=== PATIENT | female | born 1945 | race Caucasian/White ===

== ENCOUNTER 2016-04-09 08:43 | Outpatient (CLI) ==
[2016-04-09 12:56] LABS: BASOPHILS % (AUTO) 0.6 % (0.0-3.0); EOSINOPHILS # (AUTO) 0.3 K/ul (0.0-0.7); EOSINOPHILS % (AUTO) 8.1 % (0.0-7.0); HEMATOCRIT 33.3 % (37.0-47.0); HEMOGLOBIN 9.6 g/dl (12.0-16.0); IMMATURE GRANULOCYTE % (AUTO) 0.3 % (0.0-5.0); LYMPHOCYTES # (AUTO) 1.6 K/uL (0.60-3.4); LYMPHOCYTES % (AUTO) 46.2 (10.0-50.0); MEAN CORPUSCULAR HEMOGLOBIN 31.4 pg (27.0-31.0); MEAN CORPUSCULAR HGB CONC 28.8 (31.8-35.4); MEAN CORPUSCULAR VOLUME 108.8 fl (81.0-99.0); MONOCYTES # (AUTO) 0.3 K/uL (0.4-2.0); MONOCYTES % (AUTO) 7.5 (0-10); NEUTROPHILS # (AUTO) 1.3 K/ul (2.0-6.9); NEUTROPHILS % (AUTO) 37.3; PLATELET COUNT 277 10^3/uL (140-440); RED BLOOD COUNT 3.06 10^6/ul (4.20-5.40); WHITE BLOOD COUNT 3.46 K/ul (4.6-10.2)
[2016-04-09 13:09] LABS: ALBUMIN 3.6 g/dL (3.4-5.0); ALBUMIN/GLOBULIN RATIO 0.92; ANION GAP 12.1; BILIRUBIN,TOTAL 0.32 mg/dL (0.00-1.20); BUN/CREATININE RATIO 14.06; CALCIUM 8.8 mg/dL (8.2-10.2); CHOL/HDL RATIO 5.2 (4.5-5.5); CREATININE 0.64 mg/dL (0.60-1.30); POTASSIUM 4.1 mmol/L (3.5-5.10); TOTAL PROTEIN 7.5 g/dL (5.8-8.1)
== END 2016-04-09 08:44 | disposition home or self-care (01) ==
LOC: LAB 08:43
PROVIDERS: ATTEND General Practice
DX: E78.5 Hyperlipidemia, unspecified (principal); J43.9 Emphysema, unspecified; D64.9 Anemia, unspecified; E55.9 Vitamin D deficiency, unspecified; Z79.899 Other long term (current) drug therapy
CPT/HCPCS: 36415; 80053; 80061; 82306; 85025

== ENCOUNTER 2016-04-13 12:33 | Outpatient (CLI) ==
[2016-04-13 13:37] LABS: BILIRUBIN,URINE Negative (NEGATIVE); KETONES,URINE Negative (NEGATIVE); LEUKOCYTE ESTERASE ,URINE Negative (NEGATIVE); NITRITE,URINE Negative (NEGATIVE); PH,URINE 7.5 (5-9); PROTEIN,URINE Negative (NEGATIVE); URINE, BLOOD Trace-intact (NEGATIVE)
[2016-04-13 13:46] LABS: ADD URINE MICROSCOPIC YES
== END 2016-04-13 12:34 | disposition home or self-care (01) ==
LOC: LAB 12:33
PROVIDERS: ATTEND General Practice
DX: Z79.899 Other long term (current) drug therapy (principal)
CPT/HCPCS: 81001

== ENCOUNTER 2016-06-16 09:53 | Outpatient (CLI) ==
--- NOTE | 2016-06-16 10:45 | CT ---
EXAM: CT chest without contrast. HISTORY: Emphysema. COMPARISON: 12/11/2009. TECHNIQUE: Multiple axial images of the chest were obtained without intravenous contrast. Images w ere reformatted in the sagittal and coronal planes. FINDINGS: Evaluation for lymphadenopathy is limited due to lack of intravenous contrast. The heart size is normal. Atherosclerotic calcifications present. Ascending thoracic aorta measures up to 3 .8 cm maximum diameter. Severe emphysematous changes present bilaterally, greater in the upper lobes. A 1.2 x 1.6 x 0.7 cm nodular density is seen in the medial right lower lobe adjacent to the left atrium best seen on axia l image 35, coronal image 43 and sagittal image 36 central lucency within this area. Coronal images suggest some spiculations. No consolidation, pleural effusion or pneumothorax detected. Probable mu cus in the trachea. Limited images of the upper abdomen demonstrate no acute finding. Degenerative changes seen through out the spine. IMPRESSION: 1. Severe emphysema. 2. New spiculated right lower lobe nodule with central cavitation, suspicious for neoplasm. Correl ation with PET CT recommended.
== END 2016-06-16 09:54 | disposition home or self-care (01) ==
LOC: RAD 09:53
PROVIDERS: ATTEND General Practice
DX: J43.9 Emphysema, unspecified (principal); Z87.891 Personal history of nicotine dependence

== ENCOUNTER 2016-12-02 12:26 | Outpatient (CLI) ==
[2016-12-02 13:20] LABS: HEMATOCRIT 32.5 % (37.0-47.0); HEMOGLOBIN 10.1 g/dl (12.0-16.0); MEAN CORPUSCULAR HEMOGLOBIN 33.2 pg (27.0-31.0); MEAN CORPUSCULAR HGB CONC 31.1 (31.8-35.4); MEAN CORPUSCULAR VOLUME 106.9 fl (81.0-99.0); PLATELET COUNT 293 10^3/uL (140-440); RED BLOOD COUNT 3.04 10^6/ul (4.20-5.40); WHITE BLOOD COUNT 4.99 K/ul (4.6-10.2)
[2016-12-02 13:21] LABS: BILIRUBIN,URINE Negative (NEGATIVE); KETONES,URINE Negative (NEGATIVE); LEUKOCYTE ESTERASE ,URINE Negative (NEGATIVE); NITRITE,URINE Negative (NEGATIVE); PH,URINE 6.5 (5-9); PROTEIN,URINE Negative (NEGATIVE); URINE, BLOOD Negative (NEGATIVE)
[2016-12-02 13:22] LABS: ADD URINE MICROSCOPIC NO
[2016-12-02 13:34] LABS: ANISOCYTOSIS 1+ (NOT PRESENT)
[2016-12-02 13:49] LABS: ALBUMIN 3.5 g/dL (3.4-5.0); ALBUMIN/GLOBULIN RATIO 0.9; ANION GAP 13.1; BILIRUBIN,TOTAL 0.28 mg/dL (0.00-1.20); BUN/CREATININE RATIO 18.96; CALCIUM 9.1 mg/dL (8.2-10.2); CREATININE 0.58 mg/dL (0.60-1.30); POTASSIUM 4.1 mmol/L (3.5-5.10); TOTAL PROTEIN 7.4 g/dL (5.8-8.1)
== END 2016-12-02 12:27 | disposition home or self-care (01) ==
LOC: LAB 12:26
PROVIDERS: ATTEND General Practice
DX: J43.9 Emphysema, unspecified (principal); D64.9 Anemia, unspecified; E55.9 Vitamin D deficiency, unspecified; M81.0 Age-related osteoporosis without current pathological fracture; Z79.899 Other long term (current) drug therapy
CPT/HCPCS: 36415; 80053; 80061; 81001; 82306; 85008; 85025

== ENCOUNTER 2017-01-19 12:44 | Outpatient (CLI) | payer OTHER ==
[2017-01-19 13:00] LABS: EOSINOPHILS # (AUTO) 0.1 K/ul (0.0-0.7); EOSINOPHILS % (AUTO) 3.5 % (0.0-7.0); HEMATOCRIT 33.2 % (37.0-47.0); HEMOGLOBIN 10.4 g/dl (12.0-16.0); IMMATURE GRANULOCYTE % (AUTO) 0.5 % (0.0-5.0); LYMPHOCYTES # (AUTO) 1.3 K/uL (0.60-3.4); LYMPHOCYTES % (AUTO) 31.8 (10.0-50.0); MEAN CORPUSCULAR HEMOGLOBIN 33.7 pg (27.0-31.0); MEAN CORPUSCULAR HGB CONC 31.3 (31.8-35.4); MEAN CORPUSCULAR VOLUME 107.4 fl (81.0-99.0); MONOCYTES # (AUTO) 0.3 K/uL (0.4-2.0); MONOCYTES % (AUTO) 7.4 (0-10); NEUTROPHILS # (AUTO) 2.3 K/ul (2.0-6.9); NEUTROPHILS % (AUTO) 55.8; PLATELET COUNT 304 10^3/uL (140-440); RED BLOOD COUNT 3.09 10^6/ul (4.20-5.40); WHITE BLOOD COUNT 4.03 K/ul (4.6-10.2)
[2017-01-19 13:09] LABS: BILIRUBIN,URINE Negative (NEGATIVE); KETONES,URINE Negative (NEGATIVE); LEUKOCYTE ESTERASE ,URINE Negative (NEGATIVE); NITRITE,URINE Negative (NEGATIVE); PROTEIN,URINE Negative (NEGATIVE); URINE, BLOOD Trace-intact (NEGATIVE)
[2017-01-19 13:11] LABS: ADD URINE MICROSCOPIC YES
[2017-01-19 13:32] LABS: ALBUMIN 3.6 g/dL (3.4-5.0); ALBUMIN/GLOBULIN RATIO 0.84; ANION GAP 12.9; BILIRUBIN,TOTAL 0.38 mg/dL (0.00-1.20); BUN/CREATININE RATIO 16.94; CALCIUM 9.9 mg/dL (8.2-10.2); CREATININE 0.59 mg/dL (0.60-1.30); POTASSIUM 3.9 mmol/L (3.5-5.10); TOTAL PROTEIN 7.9 g/dL (5.8-8.1)
== END 2017-01-19 12:45 | disposition home or self-care (01) ==
LOC: LAB 12:44
PROVIDERS: ATTEND General Practice
DX: E55.9 Vitamin D deficiency, unspecified (principal); D53.1 Other megaloblastic anemias, not elsewhere classified; Z79.899 Other long term (current) drug therapy
CPT/HCPCS: 36415; 80053; 80061; 81001; 82306; 85025

== ENCOUNTER 2017-04-08 07:21 | Inpatient (IN) | payer OTHER ==
[2017-04-08] MEDS ORDERED: DILAUDID 1 MG/ML SYRINGE IVP STA (07:45)
[2017-04-08] MEDS ORDERED: ZOFRAN 4 MG/2 ML IVP STA (07:45)
--- NOTE | 2017-04-08 09:22 | CT ---
EXAM: CT ABDOMEN AND PELVIS HISTORY: Abdominal and low back pain TECHNIQUE: CT abdomen and pelvis without contrast. Multiplanar images provided. FINDINGS: Comparison may be made to 01/02/2014. Diagnostic limitations exist without including contrast enhanced images. Liver is slightly heterogen eous. Prominent caudate lobe and widening of the fissures. Correlate clinically and with history fo r any risks of early hepatic cirrhosis. Spleen within normal limits. Gallbladder is absent. Normal adrenal glands. Kidneys appear normal. No ureteral obstruction is seen. There is moderate atheros clerotic disease. No aneurysmal caliber of the aorta. No gastric distension. The appendix has no evidence of inflammation. Nonobstructive bowel gas patter n. No uterus is identified. Urinary bladder is within normal limits. There is no ascites. Ventral abdominal wall is intact. The bones appear significantly demineralized. Postop changes of t he lower spine are seen. No definite acute fracture. Moderately severe degenerative changes of the s pine. Lung bases reveal nodular consolidations on the right. No pneumoperitoneum. IMPRESSION: 1. Relatively severe generalized demineralization. Severe degenerative changes of the lower spine. No definite acute fracture. 2. Nodular opacities in the lateral right lung base may represent pneumonia. Pulmonary nodules are not excluded and clinical correlation and follow-up CT thorax is recommended. 3. Appearance of the liver as described in the first paragraph of the report. 4. Moderate atherosclerotic disease.
--- NOTE | 2017-04-08 09:27 | CT ---
EXAM: CT lumbar spine without contrast HISTORY: Pain COMPARISON: 06/01/2011 TECHNIQUE: CT lumbar spine performed without intravenous contrast. Coronal and sagittal reformatted images obtained. FINDINGS: Vertebral bodies normal in height. No fracture. No subluxation. Interbody spacers L4-L5 and L5-S1. Multilevel marginal osteophyte formation. Mild intervertebral disc space narrowing L2-L 3. Multilevel facet arthrosis. Bone graft harvesting site left iliac bone. Sacroiliac joints intac t with mild degenerative change. Please refer to separate report CT abdomen pelvis regarding finding s in the abdomen pelvis. Emphysematous change lung bases. Trace right pleural effusion. Adjacent at electasis. Atherosclerosis. T12-L1: No central canal or neural foraminal narrowing. L1-L2: No central canal or neural foraminal narrowing. L2-L3: No central canal or neural foraminal narrowing. L3-L4: Posterior disc osteophyte complex and facet arthrosis causing mild bilateral neural foraminal narrowing. L4-L5: Posterior disc osteophyte complex and facet arthrosis causing mild to moderate bilateral neur al foraminal narrowing. L5-S1: No definite central canal or neural foraminal narrowing. IMPRESSION: 1. No fracture or subluxation. 2. Postsurgical changes of L4-L5 and L5-S1. Chronic discogenic degenerative disease and facet arthro sis. Please see segmental analysis.
[2017-04-08] MEDS ORDERED: NORCO 10-325 PO STA (10:24)
--- NOTE | 2017-04-08 10:42 | CT ---
EXAM: CT THORAX HISTORY: Shortness of breath. TECHNIQUE: CT thorax without intravenous contrast. Multiplanar images presented. Coronal and sagit hamida re-formations. COMPARISON: 06/16/2016 FINDINGS: Diagnostic limitations exist without including contrast enhanced images. Heart size is normal. Rede monstration of dilated caliber of the ascending aorta grossly stable at about 3.5 cm. There is mild to moderate atherosclerotic disease. In the right hilar/infrahilar space, there is a soft tissue mass measuring at least 2.9 x 3.3 x 5.2 c m. This is located in the region of previously seen suspicious pulmonary nodule which was much small er. There is narrowing of the adjacent bronchovascular structures suggested. The mass is indistinct from the mediastinal soft tissues for which an invasive nature could be considered. There is moderately severe emphysema and scattered fibrosis. There are nodular infiltrates or nodules in the right lateral lower lobe. No pneumothorax or pleural fluid. No vascular congestion. The bone s reveal age-related degenerative changes of the spine with no obvious metastatic foci seen. Promine nt thyroid gland. IMPRESSION: 1. Large lung mass in the right hilar/infrahilar space consistent with neoplasia of. There is narro wing of the regional bronchovascular structures. Nodular infiltrates (pneumonia) or nodules in the ri ght lung base. 2. Background of moderately severe chronic obstructive pulmonary disease and scattered fibrosis.
--- NOTE | 2017-04-08 10:59 | ED.PDOC ---
General ED Provider: Dr. GOYO ENRIQUEZ Chief Complaint: Back Pain Stated Complaint: low back pain Time Seen by Physician: 07:30 (seen with nursing staff nalini ) Mode of Arrival: Ambulance Information Source: Patient, EMT Exam Limitations: No limitations [facility] and Triage Documentation Reviewed and Agree: Yes Reviewed sepsis parameters & appropriate labs ordered?: Yes System Inflammatory Response Syndrome: Not Applicable Sepsis Protocol: For patient's 13 years and over: Temp is 96.8 and below OR 101 and greater Pulse >90 BPM Resp >20/minute Acutely Altered Mental Status Are patient's symptoms suggestive of a new infection, such as: -Pneumonia -Skin, Soft Tissue -Endocarditis -UTI -Bone, Joint Infection -Implantable Device -Acute Abdominal Infection -Wound Infection -Meningitis -Blood Stream Catheter Infection -Unknown System Inflammatory Response Syndrome: Not Applicable Musculoskeletal Complaint Exam - Back Pain Complaint/Exam Mechanism of Injury: Reports: No known trauma Onset/Duration: chronic pain worse 2 days ago in lumbar region called 911 Symptoms Are: Still present Timing: Constant Episodes Lasting: Days Initial Severity: Severe Current Severity: Severe Location: Reports: Discrete Character: Reports: Aching Aggravating: Reports: Movements, Lifting, Bending, Walking, Cough Alleviating: Reports: Rest, Position Associated Signs and Symptoms: Denies: Swelling, Redness, Bruising, Fever, Weakness, Numbness, Tingling, Abdominal pain, Flank pain, Bladder incontinence, Bowel incontinence, Weight loss, Pain with weight bearing Related History: Reports: Similar episode (chronic low back pain with prior surgery) TAD Risk Factors: Reports: Hypertension AAA Risk Factors: Reports: Hypertension Cauda Equina Risk Factors: Reports: None Epidural Abcess Risk Factors: Reports: None Related Surgical History: Reports: None Focal Tenderness: No Paraspinal Muscle Tenderness: No Paraspinal Muscle Spasm: No Scoliosis: No Lordosis: No Kyphosis: No (unable to do SLR ) Focal Weakness: Present: None Focal Sensory Loss: Present: None Differential Diagnoses: Strain, Sprain, Other (POSSIBLE METS) Review of Systems - Review Of Systems Constitutional: Reports: No symptoms Eyes: Reports: No symptoms Ears, Nose, Mouth, Throat: Reports: No symptoms Respiratory: Reports: Cough Cardiac: Reports: No symptoms GI: Reports: No symptoms : Reports: No symptoms Musculoskeletal: Reports: No symptoms, Back pain Skin: Reports: No symptoms Neurological: Reports: No symptoms Endocrine: Reports: No symptoms Hematologic/Lymphatic: Reports: No symptoms All Other Systems: Reviewed and Negative Past Medical History - Past Medical History Previously Healthy: No Endocrine: Reports: Dyslipidemia Cardiovascular: Reports: Hypertension Respiratory: Reports: COPD Hematological: Reports: None Gastrointestinal: Reports: None Genitourinary: Reports: None Neuro/Psych: Reports: None Musculoskeletal: Reports: None Cancer: Reports: Breast (BILATERAL MASTECTOMY 18 YRS AGO IN [place]) Last Menstrual Period: NA - Surgical History General Surgical History: Reports: None - Family History Family History: Reports: None - Social History Smoking Status: Former smoker Hx Substance Use: No Alcohol Screening: None Physical Exam - Physical Exam Appearance: Well-appearing, No pain distress, Well-nourished Eyes: RENALDO, EOMI, Conjunctiva clear ENT: Ears normal, Nose normal, Oropharynx normal Respiratory: Airway patent, Breath sounds clear, Breath sounds equal, Respirations nonlabored Cardiovascular: RRR, Pulses normal, No rub, No murmur GI/: Soft, Nontender, No masses, Bowel sounds normal, No Organomegaly Musculoskeletal: Limited ROM (LUMBAR) Skin: Warm, Dry, Normal color Neurological: Sensation intact, Motor intact, Reflexes intact, Cranial nerves intact, Alert, Oriented Psychiatric: Affect appropriate, Mood appropriate Interpretation - Radiology Interpretation Radiology Interpretation By: Radiologist Radiology Results: Positive (LUNG MASS) Critical Care Note - Critical Care Note Total Time (mins): 0 Course - Course Hematology/Chemistry: 04/08/17 07:40 04/08/17 07:40 Orders, Labs, Meds: Lab Review 04/08/17 04/08/17 04/08/17 07:40 07:40 10:00 WBC 5.77 RBC 3.09 L Hgb 10.0 L Hct 32.9 L MCV 106.5 H MCH 32.4 H MCHC 30.4 L RDW Coeff of Marek 11.4 L Plt Count 326 Immature Gran % (Auto) 0.2 Neut % (Auto) 63.2 Lymph % (Auto) 24.8 [place] % (Auto) 6.6 Eos % (Auto) 4.7 Baso % (Auto) 0.5 Immature Gran # (Auto) 0.0 Neut # 3.7 Lymph # 1.4 [place] # 0.4 Eos # 0.3 Baso # 0.0 Sodium 139 Potassium 3.6 Chloride 98 Carbon Dioxide 30 Anion Gap 14.6 BUN 8 Creatinine 0.57 L Estimated GFR (MDRD) 104.00 BUN/Creatinine Ratio 14.03 Glucose 128 H Lactic Acid Calcium 9.1 Total Bilirubin 0.3 AST 19 ALT 11 L Alkaline Phosphatase 91 B-Natriuretic Peptide Total Protein 7.3 Albumin 2.8 L Globulin 4.5 Albumin/Globulin Ratio 0.62 Procalcitonin < 0.05 04/08/17 04/08/17 10:00 10:00 WBC RBC Hgb Hct MCV MCH MCHC RDW Coeff of Marek Plt Count Immature Gran % (Auto) Neut % (Auto) Lymph % (Auto) [place] % (Auto) Eos % (Auto) Baso % (Auto) Immature Gran # (Auto) Neut # Lymph # [place] # Eos # Baso # Sodium Potassium Chloride Carbon Dioxide Anion Gap BUN Creatinine Estimated GFR (MDRD) BUN/Creatinine Ratio Glucose Lactic Acid 5.8 Calcium Total Bilirubin AST ALT Alkaline Phosphatase B-Natriuretic Peptide 844 H Total Protein Albumin Globulin Albumin/Globulin Ratio Procalcitonin Orders Category Date Time Status EKG-(ED ONLY) Stat CARDIO 04/08/17 09:37 Completed B-TYPE NATRIURETIC PEPTIDE Stat LAB 04/08/17 10:00 Completed BLOOD CULTURE (ED ONLY) Stat LAB 04/08/17 10:00 Received CBC W/ AUTO DIFF Stat LAB 04/08/17 07:40 Completed COMPREHENSIVE METABOLIC PANEL Stat LAB 04/08/17 07:40 Completed LACTIC ACID Stat LAB 04/08/17 10:00 Completed PROCALCITONIN Stat LAB 04/08/17 10:00 Completed URINALYSIS C & S IF INDICATED Stat LAB 04/08/17 07:51 Uncollected Hydrocodone Bit/Acetaminophen [[place] 10-325] MEDS 04/08/17 10:24 Discontinued 1 tab PO ONCE STA Hydromorphone HCl [Dilaudid 1 mg/ml Syringe] MEDS 04/08/17 07:45 Discontinued 0.5 mg IVP ONCE STA Ondansetron HCl/Pf [Zofran 4 mg/2 ml] MEDS 04/08/17 07:45 Discontinued 4 [address] IVP ONCE STA CT ABDOMEN/PELVIS WO CONTRAST Stat RADS 04/08/17 07:[address] CHEST W/O CONTRAST Stat RADS 04/08/17 09:[address] LUMBAR SPINE W/O CONTRAST Stat RADS 04/08/17 07:52 Completed Medications Discontinued Medications Generic Name Dose Route Start Last Admin Trade Name Arminda PRN Reason Stop Dose Admin Acetaminophen/Hydrocodone Bitart 1 tab 04/08/17 10:24 04/08/17 10:29 [place] 10-325 PO 04/08/17 10:25 1 tab ONCE STA Administration Hydromorphone HCl 0.5 mg 04/08/17 07:45 04/08/17 07:53 Dilaudid 1 Mg/Ml Syringe IVP 04/08/17 07:46 0.5 mg ONCE STA Administration Ondansetron HCl 4 mg 04/08/17 07:45 04/08/17 07:52 Zofran 4 Mg/2 Ml IVP 04/08/17 07:46 4 mg ONCE STA Administration Vital Signs: Temp Pulse Resp BP Pulse Ox 04/08/17 07:24 98 F 120 H 20 169/87 H 96 Departure - Departure Time of Disposition: 11:20 Disposition: ADMITTED INPATIENT Discharge Problem: Lung mass Instructions: Acute Low Back Pain (ED) Condition: Good Pt referred to PMD for follow-up: Yes IPMP verified?: Yes Additional Instructions: Please call your Family Physician as soon as possible to schedule a follow-up appointment. Allergies/Adverse Reactions: Allergies morphine Allergy (Severe, Unverified 01/25/17 09:50) Difficulty Breathing codeine Adverse Reaction (Verified 04/08/17 07:32) iodine Adverse Reaction (Verified 04/08/17 07:32) Home Medications: Ambulatory Orders Egnar Xl 300 mg PO DAILY #60 tab-cap 02/16/16 Aspecreme/Lidoc 1 applic TP TID chico 10/07/16 Disposition Discussed With: Patient
[2017-04-08] MEDS ORDERED: ROCEPHIN 1 GM in SODIUM CHLORIDE 50 ML IV STA (11:06)
[2017-04-08] MEDS ORDERED: ZITHROMAX PO STA (11:06)
[2017-04-08] MEDS ORDERED: ZITHROMAX 500 MG in SODIUM CHLORIDE 250 ML IV STA (11:10)
[2017-04-08] MEDS ORDERED: ROCEPHIN ONE (11:11)
[2017-04-08 13:03] VITALS: BMI 19.8
[2017-04-08] MEDS ORDERED: DILAUDID 2 MG/ML SYRINGE IVP PRN (13:16)
[2017-04-08] MEDS ORDERED: DILAUDID 2 MG/ML SYRINGE ONE (13:56)
[2017-04-08] MEDS: INFUVITE ADULT 10 ML in D5%-1/2NS-KCL 20 MEQ/L IV SOL 1,000 ML IV SCH (14:44)
[2017-04-08] MEDS: LOVENOX SUBCUT SCH (14:45)
[2017-04-08] MEDS: LYRICA PO SCH ×2 (14:45→19:59)
[2017-04-08] MEDS: OXYCODONE PO SCH ×2 (17:22→19:59)
[2017-04-08] MEDS: SYMBICORT 160-4.5 MCG INHALER IH SCH (19:59)
[2017-04-08] MEDS: [UNRECOGNIZED DRUG - OTHER] TP SCH (20:00)
[2017-04-09] MEDS: OXYCODONE PO SCH ×6 (00:38→17:44)
[2017-04-09] MEDS: DILAUDID 1 MG/ML SYRINGE IVP PRN ×4 (02:31→18:28)
[2017-04-09] MEDS ORDERED: INFUVITE ADULT IV ONE ×2 (03:31→18:46)
[2017-04-09] MEDS: INFUVITE ADULT 10 ML in D5%-1/2NS-KCL 20 MEQ/L IV SOL 1,000 ML IV SCH ×2 (05:40→18:52)
[2017-04-09] MEDS ORDERED: OMEGA-3 FISH OIL PO SCH (09:00)
[2017-04-09] MEDS: [UNRECOGNIZED DRUG - OTHER] TP SCH ×2 (10:13→17:44)
[2017-04-09] MEDS: ROCEPHIN 1 GM in SODIUM CHLORIDE 50 ML IV SCH (10:14)
[2017-04-09] MEDS: SPIRIVA IH SCH (10:19)
[2017-04-09] MEDS: SYMBICORT 160-4.5 MCG INHALER IH SCH (10:19)
[2017-04-09] MEDS: LYRICA PO SCH (10:22)
[2017-04-09] MEDS: ZESTRIL PO SCH (10:23)
[2017-04-09] MEDS: LOVENOX SUBCUT SCH (10:24)
[2017-04-09] MEDS: OMEGA 300 MG PO SCH (10:24)
[2017-04-09] MEDS ORDERED: DILAUDID 1 MG/ML SYRINGE IVP STA (22:38)
--- NOTE | 2017-04-09 22:46 | CT ---
EXAM: CT head without contrast. HISTORY: Lethargy. PROCEDURE: Contiguous axial CT images of the head without contrast with coronal and sagittal reforma ts. FINDINGS: Comparison made with CT head of 11/01/2010. There is mild diffuse cerebral atrophy. The ve ntricles and basal cisterns are normal in size and configuration. No evidence of mass or midline chilo ft. No intracranial hemorrhage or evidence of new large vessel infarct. Redemonstrated are ill-defin ed areas of decreased attenuation in the right frontal parietal region consistent with old infarcts. No extra-axial fluid collection. There are chronic small vessel ischemic changes in the white matter. There is minimal mucosal thickening in the paranasal sinuses. The mastoid air cells are well-aerated and normal in appearance. Impression: No intracranial hemorrhage or evidence of new large vessel infarct. Chronic ill-defined areas of decreased attenuation in the right frontal parietal region consistent wi th old infarcts. Chronic small vessel ischemic changes. Mild diffuse cerebral atrophy. Paranasal sinusitis.
--- NOTE | 2017-04-09 22:50 | CT ---
EXAM: CT of the chest without contrast. HISTORY: Lung mass. PROCEDURE: Contiguous axial CT images of the chest without contrast with coronal and sagittal reform ats. FINDINGS: Comparison made with CT chest of 04/08/2017. The exam is limited without IV contrast. The heart is within normal limits in size. The thoracic aorta is within normal limits in diameter. Rede monstrated is a right hilar and infrahilar mass measuring approximately 3.1 x 4.7 cm resulting in avis rowing of the adjacent bronchi. There are emphysematous changes throughout both lungs. There is jeninfer pical scarring. There are right lung infiltrates and minimal right lower lobe consolidation. There i s a small right pleural effusion. There are degenerative changes in the spine. The adrenal glands and visualized portion of the liver are normal in appearance. Impression: Right hilar and infrahilar mass as described consistent with malignancy. Right lung infiltrates and minimal consolidation consistent with pneumonia. Small right pleural effusion. Chronic obstructive pulmonary disease.
[2017-04-10] MEDS ORDERED: NORCO 10-325 PO STA (00:20)
[2017-04-10] MEDS ORDERED: ALBUTEROL 0.042% NEB NEB STA (00:45)
[2017-04-10] MEDS: SOLU-CORTEF 100 MG IVP SCH ×5 (01:00→19:23)
[2017-04-10] MEDS: NORCO 10-325 PO SCH ×4 (03:45→14:26)
[2017-04-10] MEDS: DILAUDID 1 MG/ML SYRINGE IVP PRN ×4 (03:54→22:36)
[2017-04-10] MEDS: [UNRECOGNIZED DRUG - OTHER] TP SCH ×4 (03:56→21:39)
[2017-04-10] MEDS: LYRICA PO SCH ×3 (03:57→21:38)
[2017-04-10] MEDS: SYMBICORT 160-4.5 MCG INHALER IH SCH ×3 (03:57→21:38)
[2017-04-10] MEDS: OXYCODONE PO SCH (04:00)
[2017-04-10] MEDS ORDERED: INFUVITE ADULT 10 ML in D5%-1/2NS-KCL 20 MEQ/L IV SOL 1,000 ML IV SCH (04:44)
[2017-04-10] MEDS: ALBUTEROL 0.042% NEB NEB SCH ×4 (05:18→23:23)
[2017-04-10] MEDS ORDERED: DUONEB NEB SCH (06:00)
[2017-04-10] MEDS: ROCEPHIN 1 GM in SODIUM CHLORIDE 50 ML IV SCH (10:00)
[2017-04-10] MEDS: ZESTRIL PO SCH (10:01)
[2017-04-10] MEDS: LOVENOX SUBCUT SCH (10:01)
[2017-04-10] MEDS: PYRIDIUM PO SCH ×3 (10:01→21:38)
[2017-04-10] MEDS: MIRALAX PO SCH (10:01)
[2017-04-10] MEDS: SPIRIVA IH SCH (10:01)
[2017-04-10] MEDS: OMEGA 300 MG PO SCH (10:02)
[2017-04-10] MEDS ORDERED: NORCO 7.5-325 PO STA (12:52)
[2017-04-10] MEDS: NORCO 10-325 ONE ×2 (13:02→13:06)
[2017-04-10] MEDS ORDERED: NORCO 7.5-325 MG/15 ML PO SCH (15:00)
[2017-04-10] MEDS: NORCO 7.5-325 PO SCH ×3 (16:03→21:38)
[2017-04-10] MEDS ORDERED: INFUVITE ADULT IV ONE (22:32)
[2017-04-11] MEDS: NORCO 7.5-325 PO SCH ×7 (00:20→18:04)
[2017-04-11] MEDS: SOLU-CORTEF 100 MG IVP SCH ×4 (01:32→18:03)
[2017-04-11] MEDS: DILAUDID 1 MG/ML SYRINGE IVP PRN ×3 (04:46→17:15)
[2017-04-11] MEDS: ALBUTEROL 0.042% NEB NEB SCH ×3 (05:19→14:18)
[2017-04-11] MEDS: ZESTRIL PO SCH (08:47)
[2017-04-11] MEDS: PYRIDIUM PO SCH ×2 (08:47→14:50)
[2017-04-11] MEDS: ROCEPHIN 1 GM in SODIUM CHLORIDE 50 ML IV SCH (08:48)
[2017-04-11] MEDS: OMEGA 300 MG PO SCH (08:49)
[2017-04-11] MEDS: MIRALAX PO SCH (08:50)
[2017-04-11] MEDS: [UNRECOGNIZED DRUG - OTHER] TP SCH ×2 (08:53→14:51)
[2017-04-11] MEDS: LOVENOX SUBCUT SCH (08:53)
[2017-04-11] MEDS: LYRICA PO SCH (08:59)
[2017-04-11] MEDS: SPIRIVA IH SCH (09:05)
[2017-04-11] MEDS: SYMBICORT 160-4.5 MCG INHALER IH SCH (09:05)
--- NOTE | 2017-04-11 14:50 | NM ---
EXAM: Whole body bone scan HISTORY: Lung mass and back pain COMPARISON: The chest CT on 04/09/2017 showed right hilar and infrahilar mass. CT of lumbar spine on 04/08/2017 showed postsurgical changes lower lumbar spine. Chronic degenerative disease and facet a rthrosis. TECHNIQUE: Anterior and posterior whole body bone scans were obtained following the intravenous admin istration of 26.6 mCi of technetium 99m HDP, followed by spot views of areas of interest. FINDINGS: Increased isotope activity is present and patellofemoral joint bilaterally compatible with degenerative disease. No other abnormal focus of increased or decreased isotope uptake is visualized . Kidneys and soft tissues are unremarkable. IMPRESSION: 1. No evidence of osseous metastasis. 2. Degenerative disease knee joint bilaterally.
[2017-04-11] MEDS ORDERED: CARDIZEM PO SCH (17:00)
[2017-04-11] MEDS ORDERED: CARDIZEM ONE (17:16)
[2017-04-11 17:24] VITALS: TEMP 97.8
[2017-04-11 18:06] VITALS: BP 130/72
[2017-04-15] MEDS ORDERED: VITAMIN B-12 IM SCH (09:00)
--- NOTE | 2017-04-15 13:33 | CONS ---
The patient was seen on Consultation on 04/10/17: Level 5, seen one day. MTDD
--- NOTE | 2017-04-15 14:55 | CONS ---
DATE OF CONSULTATION: 04/10/17 REASON FOR CONSULTATION: Respiratory failure and evaluating whether any contributing factor could be coming from cardiovascular system. HISTORY OF PRESENT ILLNESS: 71 Year old white female who has intractable back pain had taken more pain medication as a result with the tendency that she has with chronic lung disease to retain CO2, her CO2 level went up to 90 and she was more or less obtunded. At present when I saw the patient today at around 5:00pm the patient's blood gasses looked a lot better on 2-3 liters. She has a pO2 of 70 with pCo2 of 50 with normal pH. The patient has compensated respiratory acidosis. At the time when I examined the patient she was not in distress and she was breathing very calmly. The daughter was present in the room. REVIEW OF SYSTEMS: CONSTITUTIONAL: No night sweats. No fever or chills. Weakness and fatigue. HEENT: Eyes: No visual changes. No eye pain. No eye discharge. ENT: No sinus drainage. No epistaxis. No sinus pain. No sore throat. No odynophagia. No ear pain. No congestion. RESPIRATORY: No cough, no congestion. No hemoptysis. No shortness of breath at but short of breath on minimal exertion. CARDIOVASCULAR: No angina symptoms. No CHF symptoms. No atypical chest pain for CAD. No palpitations. No orthopnea. GASTROINTESTINAL: No abdominal pain. No nausea or vomiting. No diarrhea or constipation. No hematemesis. No hematochezia. GENITOURINARY: No urgency. No frequency. No dysuria. No hematuria. No obstructive symptoms. No discharge. No pain. No significant abnormal bleeding. MUSCULOSKELETAL: No musculoskeletal pain. No joint swelling. Severe pain. Generalized osteoarthritis. NEUROLOGICAL: No headache. No neck pain. No syncope. No seizures. No dizziness. PSYCHIATRIC: Not anxious. No depression. No suicidal thoughts. No homicidal thoughts. SKIN: No rash. No lesions. No wounds. ENDOCRINE: No unexplained weight loss. No weight gain. HEMATOLOGIC/LYMPHATIC: No anemia. No purpura. No petechiae. No prolonged or excessive bleeding. No palpable lymph nodes. MEDICATIONS: De Berry 300mg PO daily Symbicort 160/4.5 twice a day Spiriva one puff daily Lyrica 50mg PO three times a day [place] 10-325 PO four times a day Vitamin D 2 50,000 units PO daily Lisinopril 10mg Po daily ALLERGIES: Morphine Codeine Iodine PAST MEDICAL HISTORY/PAST SURGICAL HISTORY: Hypertension Dyslipidemia Severe chronic lung disease Bilateral mastectomy History of lung mass Severe DJD of the spine SOCIAL/PERSONAL/FAMILY HISTORY: The patient is former smoker, doesn't seem to have alcohol abuse. She is living by herself with help of daughters. PHYSICAL EXAMINATION: GENERAL: The patient is oriented to time, place and person. VITAL SIGNS: Temperature 97.9, pulse 100, respiratory rate 20, blood pressure 160/90 and pulse ox 96%. HEENT: Head normocephalic, atraumatic. Eyes: Extraocular muscles are intact. Pupils are equal, round and reactive to light and accommodation. Ears: No lesions. Nose appeared normal. Throat: No exudate or erythema. Looks pale. NECK: Supple. No JVD, no carotid bruit. No lymphadenopathy or thyromegaly. LUNGS: Clear to auscultation with decreased breath sounds but good air entry. Percussion note normal. Chest symmetrical. HEART: S1, S2, no S3. No murmurs. No cyanosis or clubbing. No ascites. Pulses: Dorsalis pedis and posterior tibial pulses +1. PMI not palpable on auscultation. ABDOMEN: Soft. Nontender. Bowel sounds active. No CVA tenderness. No mass felt. EXTREMITIES: No edema. Full range of motion of all extremities, equal. NEUROLOGIC: No focal deficit. Cranial nerves II through XII are grossly intact. No headache, no double vision or headache. SKIN: Not dry. Intact. Turgor - normal. LYMPHATIC: No palpable lymph nodes/no lymphedema. MUSCULOSKELETAL: Normal joints with no swelling. Muscle tone is normal. LABS: Telemetry sinus tachycardia rate 100 per minute. ABG's done this afternoon noted which are acceptable with compensated respiratory acidosis on 3 liters. Hgb 9.5, hct 32, WBC 5,500 normal differential, creatinine 0.5, BUN 4, potassium 4.6 ASSESSMENT: 1. Respiratory failure secondary to severe chronic lung disease compounded by pain medications 2. Hypertension 3. Dyslipidemia 4. Generalized osteoarthritis 5. History of lung mass RECOMMENDATIONS: 1. We will do echocardiogram to evaluate LV function in the morning 2. Seems to be that LV functions seems to be normal with no evidence of CHF. No S3, No JVP. 3. The patient has sinus rhythm with no acute changes. 4. Cardizem 60mg twice a day which will help hypertension and also tachyarrhythmias Thanks for referral will follow. MTDD
--- NOTE | 2017-04-20 12:00 | HP ---
CHIEF COMPLAINT: Exacerbation of chronic back pain. SOURCE OF HISTORY: Patient, plus and notes from the emergency room. HISTORY OF PRESENT ILLNESS: The patient who had been experiencing chronic back pain for years. She had three previous surgeries to the back and had been to Pain Management. Pain Management had not given her any injections, except a narcotic analgesic medication. I had taken over the writing of the prescriptions for the narcotic analgesic for the chronic pain. The patient had some intermittent exacerbation of the pain and the patient has a similar one beginning two days ago. The pain was becoming unbearable and the patient was then transported to the emergency room by ambulance. She could hardly get out of bed. She also had some lower abdominal discomfort. The patient was evaluated in the emergency room and had the following tests done, CBC on 2017 showing a normal WBC at 5.77, RBC 3.09, hemoglobin 10.0, hematocrit 32.9. The MCV and MCH were high and the RDW is low at 11.4. She had a CT scan of the abdomen and pelvis because of the abdominal discomfort, relatively severe generalized demineralization, severe degenerative changes of the lower spine, not acute fracture, nodular opacities in the right lung base, my represent pneumonia. Pulmonary nodules are not excluded. Appearance of the liver is described as slightly heterogeneous, prominent caudate lobe and widening of the fissures. Moderate atherosclerotic disease. No intestinal distensions or abnormalities noted. CT of the lumbar spine because of the pain showed no fracture or subluxation, post surgical changes of L4 and L5 and L5 and S1, chronic degenerative discogenic disease and facet arthrosis. CT of the chest was done because of shortness of breath. This patient had been short of breath for years and is on supplemental oxygen. The CT, however, revealed a lung mass in the right hilar/infrahilar space consistent with neoplasm. Narrowing of the regional bronchovascular structures. Nodular infiltrates (pneumonia or nodules ) in the right lung base. Background of moderately severe chronic obstructive pulmonary disease and scattered fibrosis. The mass in the area where there was a previously abnormal findings on CT. The patient was then admitted to the hospital for control of pain. She also was given an antibiotic in the emergency room. PAST PERSONAL HISTORY: The patient had a breast carcinoma and resulted to a bilateral mastectomy. She also had a previous cholecystectomy, hysterectomy. She had three lumbar surgeries. Other conditions consisted of diagnosis of hepatitis C, osteoporosis, hypertension and anemia. Also, Chronic obstructive pulmonary disease, severe, on supplemental oxygen. FAMILY HISTORY: Sister had CVA, brother had carcinoma, mother had heart problems and father's family had history of malignancy. SOCIAL HISTORY: The patient and resides with her , who is her caregiver. She stopped smoking more than three years ago. The patient prior to smoking cessation weighed about 78 pounds. The patient since then had gained some weight. MEDICATIONS: Prior to this admission: [place] XL 300 mg daily Symbicort 160/4.5 mcg one inhalation twice a day Tiotropium [place] (Spiriva) 18 mcg capsule one inhalation daily Aspercreme Lidocaine applied three times a day Pregabalin 50 mg three times a day Hydrocodone/APAP 10/325 mg #120. The patient is taking 1/2 tablet every three hours around the clock. Lisinopril 10 mg daily Vitamin D2 50,000 IU monthly ALLERGIES: Morphine, Codeine and Iodine. REVIEW OF SYSTEMS: CONSTITUTIONAL: The patient had no fever or chills, but markedly weak with the pain. VISUAL: No double vision, no blurred vision and no loss of vision. RESPIRATORY: The patient has always been short of breath for years and is on supplemental oxygen. She stopped smoking a few years ago. AUDITORY: The patient is able to hear. No tinnitus. No pain or drainage in both ears. CARDIOVASCULAR: Denies any chest pain or chest oppression. GASTROINTESTINAL: The patient has no problems swallowing solids or liquids and had gained weight since she stopped smoking a few years ago. She denies any substernal burning, but does have some lower abdominal discomfort during this admission. GENITOURINARY: The patient denies any dysuria. MUSCULOSKELETAL: She has pain in the back, which is severe and actually also generalized. According to her she has pain all over. ENDOCRINE: Negative. HEMATOLOGIC: The patient has chronic anemia, but no history of prolonged bleeding. PSYCHIATRIC: Affect normal in the patient in spite of the pain she is pleasant and does answer questions. PHYSICAL EXAMINATION: GENERAL: We have a 71 year old female admitted to the hospital because of acute exacerbation of pain in the lumbar area. The patient tells me also that she hurts all over. This patient has chronic obstructive lung disease, severe, with supplemental oxygen. VITAL SIGNS: Temperature 98, pulse 120, blood pressure 168/87, respiratory rate 20, oxygen saturation 96 on 2 liters cannula. The patient is pale, but not cyanotic. FACE: Symmetrical and equal with no facial weakness. EYES: Pupils equal/reactive to light about 3 mm in size and round. Conjunctivae pale. Sclerae not icteric. MOUTH: Unremarkable. THROAT: No inflammation, tumors or exudate. NECK: No masses. No bruit. No tenderness. No rigidity. CHEST: Symmetrical and equal. Expansion adequate. No remarkable tenderness. LUNGS: Breath sounds are markedly diminished in both sides. Practically no air exchange audible. No rales or wheezing. The poor air exchange probably accounts for the absence of rales or wheezing. HEART: Audible and regular with good tones. No murmurs. ABDOMEN: Flat, soft with no remarkable tenderness. No guarding. Bowel sounds are active. No masses palpable. There is some discomfort in the lower abdomen to palpation, but no muscular guarding. The abdomen is slightly protuberant below the umbilicus. EXTERNAL GENITALIA: Not examined. PELVIC AND RECTAL: Not performed. LOWER EXTREMITIES: Essentially symmetrical and equal. No significant leg edema. UPPER EXTREMITIES: Symmetrical and equal. ASSESSMENT: 1. CHRONIC LUMBAR PAIN WITH ACUTE EXACERBATION, ETIOLOGY UNDETERMINED 2. CHRONIC OBSTRUCTIVE PULMONARY DISEASE WITH RESPIRATORY FAILURE ON SUPPLEMENTAL OXYGEN 3. PERIHILAR AND INFRAHILAR MASS, PROBABLY MALIGNANT 4. CHRONIC TOBACCO USE AND ABUSE, STOPPED SOME FEW YEARS AGO, THREE YEARS OR THERE ABOUT 5. PREVIOUS LUMBAR SURGERY TIMES THREE 6. OSTEOPOROSIS This patient was advised Pain Management, but refuses to seek the services of Pain Management. PROGNOSIS: Poor. MTDD
[2017-04-21] MEDS ORDERED: DRISDOL PO SCH (16:30)
--- NOTE | 2017-04-29 15:24 | PN ---
DATE: 04/10/17 PROGRESS NOTES AND DISCUSSION: With Zhanna Villarreal, her daughter, her . Later on the discussion was with the patient, the and son-in-law, niece and also the nurse intermittently. I was contacted by the nurse about 9:30 in the evening or just after that with regards to Mrs. Villarreal. She told me that the patient was lethargic and so I asked about the medications that was given. This patient is on Oxycodone IR every 4 hours and Dilaudid 1 mg prn for pain. The patient became lethargic after supper. The nurse was more or less repeating what the relative that was in there that maybe she had a stroke or an overdose of the medication. The patient was then felt to need a CT scan of the head to rule out what was the impression and also a CT scan of the chest to see if there is any deterioration of the lung problem. This patient was admitted to the hospital for better control of the pain. This patient had been on narcotic analgesic medications for some time. Those medications were initiated by the previous physician prior to my being her primary provider. This patient had three back surgeries back in [place]. The patient, however, during the course of the transfer from the bed to the stretcher woke up suddenly. The nurse mentioned that the family was happy that the patient did wake up. I came out about 10 p.m. on 04/09/17. The results of the CT of the chest and head CT report were not available. The lab was partially available and what was lacking was the BNP. So I decided to see the patient. I asked the nurse about the status and they said she is a full code. I went to the room and asked to talk to the family member and the daughter, as well as the came to the hallway and I did ask them about the code status of the patient, Mrs. Zhanna Villarreal and I was told that the code is a full code. I talked to the earlier and I felt that the patient is not a candidate for resuscitation and so the significant problems that she has a resuscitation was not going to make her any better. The daughter told me that it was a decision of her mother to be a full code. In the course of the discussion, the daughter asked me if there is anything that could be done to the back and I said no as far as correcting the problem. What had been done was giving her pain medication to make her life livable and pain medication could be increased in order reduce the pain intensity. It is not going to cure the back problem which she has had for years with prior surgeries. The patient understood before and was on Pain Management on account of the fact that there was no surgical intervention that could be done. The patient felt that I laughed at her as I did not. I may have smiled a little. This question should have been put too long ago if there was a question in their mind that things can be done or corrected. The daughter abruptly stopped our discussion. Her wanted to talk to her and next time I know that the hardly is coming. When he came in I did talk to him briefly about what we had discussed earlier. I told him that getting a resuscitation, meaning a full code, pressure , compression, tubing would probably be painful to the patient and most likely would not be of any gain. I told him that it would be malicious in my estimation to proceed with that. However, I would respect the patient's desire , as well as the family going with the patient. Mr. Villarreal was asking me if she could just go back to where she is if something happens and I told him that that would be about the best that one can expect if the status quo where she is now where she is quite miserable and giving her pain medication makes her drowsy and not breathing well making the carbon dioxide to go higher. The carbon dioxide is high with Methadone the medication. The pain medication can make her sleepy and would exacerbate the increasing level of the carbon dioxide. I told them that the CT scan of the head does not show any acute intracranial processes. Meaning blood clot or tumor. CT scan of the chest is essentially the same as when she came into the emergency room on 04/08/2017. I did talk to Mrs. Villarreal in front of the and other relatives and explained to her that she would be resuscitated trying to revive her if her breathing goes down or her heart would stop. She would have a tube in her windpipe if one is able to insert it and sometimes one may not be successful and the tube inserted may have to be there for some time, even when the resuscitation is successful. Sometimes it is unknown to me since she has the severe chronic lung problems. She had been on oxygen for I believe when I first saw her as a new patient and that has been several years. She decided to have a full resuscitation and I again mentioned to her that she will have a tube in her windpipe and may be there for some time, we don't know and that would be if they were able to revive her. The back pain would not be corrected by the resuscitation and the pain would be the same and I believe that there is not any surgical interventions that could be done to the back since there seems to be no obvious problems bases upon the CT scan that was done 04/08/2017. I did inform Mr. Villarreal earlier that I scheduled her for a bone scan since she is complaining of pain without any obvious changes in the bone pictures by CT scan. The changes that we are looking is either a compression fracture or a crunching of the bone and that certainly would give pain or exacerbates the pain. Finding is absent. She also did complain of some abdominal discomfort and her abdomen is somewhat slightly distended and I don't feel a mass at the time of my examination, although above the symphysis slightly protuberant. The bowel sounds are active and no bruit. HEART: Normal sinus rhythm. NECK: No masses and no bruit. LUNGS: Breath sounds are markedly diminished in both sides. No rales or wheezing. LOWER EXTREMITIES: Edematous ankles and legs. No cyanosis. No significant tenderness in the calf muscles. UPPER EXTREMITIES: Essentially symmetrical and equal. FACE: Symmetrical and equal with no facial weakness. Somewhat pale. ABDOMEN: The abdomen was somewhat protuberant compared to admission and because of the pain with movement and going to the bathroom was difficult a catheter was inserted. It was difficult to insert the catheter and I inserted the catheter myself. The abdomen at this time is more elevated and firm. We obtained a urine that was clear and yellow, about 700 cc of blood. The patient felt relief of the pain then. She was complaining of some pain and so she was given 1/2 mg of Dilaudid IV. She no longer was receiving the Oxycodone. Arterial blood gases was abnormal with a pH of 7.24, oxygen saturation 95, CO2 90+, bicarbonate high, as well as total CO2. The patient has respiratory acidosis. We tried to give Solu-Cortef at a lower dose to see if that would help the problem, as well as a nebulizer consisting of Albuterol HFA and to monitor the pulse since her pulse is already about 100 or slightly above. This patient is receiving Rocephin for the questionable pneumonia. The daughter was asking me if there is a test for the cancer via the blood and I told her that I am not very certain that there is a specific one unless it would be a generic typing, but that would after removing a piece of the tumor to analyze it for the course of treatment to be followed. The patient can have a transthoracic biopsy, but that sometimes causes a pneumothorax and would have a chest tube if that happens. The other is a bronchoscopy and would be a little bit harder too if the supervisor liquid yeast decides to go that route and see if he can biopsy it. We will try to get the CO2 down and if that gets better then the chances of intubation will dissipate and probably would get another good conversation with that. It seems like the daughter is not able to accept that her mother is dying. I told them that everybody is dying, except that some by looks and estimation and also studies done and what kind of problems seem to have a shorter light in the tunnel. My thoughts would be to just wait for the bone scan and see if there is any metastatic disease from the lung or if the bone itself is showing some defects not visualized with the CT scan. Would that make any difference I doubt about it, but if it is metastases maybe one can radiate and relieve the pain if that is recommended. I would try to talk to oncologist with regards to the cancer in the lung. This patient was referred to a supervisor liquid yeast in [place], but they would not take public aide and they had referred her to Dr. Kaur over in [place] and there was some scheduling problems and that had been noted in the office. I could not remember getting any reports of that, but the patient's never mentioned to me what was the instructions by the doctor over in [place]. We will try to get those. If her arterial blood gases improves and her constitution would improve and the pain is livable, that she will be referred again to a supervisor liquid yeast and oncologist to decide on what can be done for the lung and for her lung problems. A neurosurgeon may be requested to see the back for completeness of the evaluation to this problem. My feeling is studies done would be done with some difficulty and may not result to treatment and improvement of her status. I spent two and half hours to three trying to explain the complexity of the problem. ASSESSMENT: 1. CHRONIC LUMBAR PAIN (FAILED BACK SURGERY SYNDROME TIMES THREE) WITH EXACERBATION. THE PROBLEM BEGAN TWO DAYS PRIOR TO PRESENTATION TO THE EMERGENCY ROOM. 2. CHRONIC OBSTRUCTIVE PULMONARY DISEASE, SEVERE WITH CHRONIC MEDICATIONS CONSISTING OF SYMBICORT 160/4.5, IPRATROPIUM/SPIRIVA ONE INHALATION DAILY. 3. SHE WAS GETTING LYRICA FOR HER LEGS THAT WERE TINGLING. CHRISTIED
--- NOTE | 2017-05-02 11:04 | PN ---
DATE OF VISIT: 04/09/17 at 2 p.m. The patient was sitting in the room when I walked in. She was in pain. LUNGS: The lungs have markedly diminished breath sounds, but no rales or wheezing. HEART: Audible with good tones. NECK: No masses and no bruit. ABDOMEN: Was not palpated this time. LEGS: Edematous. UPPER EXTREMITIES: There seems to be some fluid also on the upper extremity, maybe from the IV. I informed Mr. Villarreal that I had scheduled for a bone scan to see if there is anything else that we can find to explain the increased amount of pain. This patient previously had a similar episode, but the intensity much worse than the usual. She had that for the last two days and presented to the emergency room on the third day. CONDITION: Stable, although in pain and needed more medication. In fact, she is needing medication that what she had before. She was getting 1/2 tablet of 10/325 Hydrocodone/APAP every 3 hours around the clock. He adds a little bit of Tylenol to each dose. He tried to explain to me that the doses had been decreased with the Tylenol and that the pharmacist told her to just break it and add it to the doses. So in essence this patient also had been receiving more Tylenol. Today when she presented to the emergency she had back pain that was rated at 10 and some abdominal discomfort, but no remarkable tenderness and no bruit. Bowel sounds are present. The patient had claimed to be urinating. We will wait for the bone scan on Tuesday. DESTINI
--- NOTE | 2017-05-02 11:11 | PN ---
DATE OF VISIT: 04/10/17 The patient, about mid day, was feeling better, somewhat. She is more arousable and not agonizing. I talked to her , Mr. Villarreal, and informed him that I would wait for the bone scan before I would talk to any sub- specialities for further care with her problems. The bone scan is schedule tomorrow, Tuesday. When I came back in the evening, the was there and he asked me if I could increase the medication from 5 mg of Hydrocodone to 7.5/ 325 mg every 3 hours. I told him again that yes I would try to make her comfortable, but there is a find line about sedation with her more so that she has a chronic lung problem with increased carbon dioxide level. He claimed to understand the dangers of that. I did repeat the difficulty of controlling the pain and sedation which would aggravate the lung problems. The goal is to control some of the pain that it would make it livable, but yet at the same time she is still awake and able to take good deep breaths from time to time. The did understand that. I also informed him that I would ask Dr. Fay to see her to see if there is anything else he can add to her management. DESTINI
--- NOTE | 2017-05-02 11:20 | PN ---
DATE OF VISIT: 04/11/17 I did see the in the hallway. He was more or less gasping for breath. He told me that he had two tires changed for his van and they are going to meet him in front of the hospital. I advised him to go ahead and he told me that he would see me tomorrow or the next day, 04/12/17. I still do not have the report of the bone scan at that time. The patient is still complaining of pain in the lower back and rates the pain as 10 on the scale of 0-10. She is now getting the Hydrocodone 7.5/325 mg every three hours. She is responsive and answers questions correctly. She has no cyanosis. VITAL SIGNS: on 04/11/17 showed a pulse of 129, blood pressure 158/81, respiratory rate 20, no oximetry, but oxygen saturation at 2 liters was 92 at 10 a.m. The bone scan was negative for any metastases. I talked to Dr. Fay and asked for consultation yesterday and I had discussed the case with him today. Again, I had asked information for the patient to be seen by Dr. Fay and the okayed the consultation proposed. DESTINI
--- NOTE | 2017-05-02 11:39 | PN ---
DATE: 04/11/17 Conversation with the hospitalist at [facility]. His name is Gurjit Parmareo. I had told him the history of the patient and the reason for her coming to the hospital was the exacerbation of the back pain two days prior to presentation. She was admitted on the . I informed the doctor that she had an episode of hypercarbia and the oxygen was increased because of the increasing dyspnea. The oxygen was decreased back to 2 and the patient's condition had improved and the medication also was decreased. This patient previously was given 1 mg of Dilaudid prn every 6 hours for more severe pain. I mentioned to him about the COPD with oxygen supplementation because of respiratory failure. I also mentioned the right perihilar and infrahilar mass, which probably is a malignant process. It probably would need a biopsy. I had done a bone scan and this patient had a CT scan of the lumbar spine which showed no acute processes and the bone scan does not show any metastatic disease or any increased uptake of the region nuclide. He wanted to know about the recent tests and we had one done a few minutes ago and the pH was 7.506, oxygen saturation 96, PCO2 52.2, PO2 77, bicarbonate 41.3, total CO2 43, base excess 18. Dr. Wilson told me that there is nothing else he can offer other than what we are doing. I did tell him that [facility] has a Pain Management and maybe a consultation to that effect. He told me at the end that he would not take the patient under his services. I did thank him about the time he spent with me to discuss the case. We will try another facility for a possible transfer. DESTINI
--- NOTE | 2017-05-02 11:57 | PN ---
DATE: 04/11/17 Conversation with Zhanna Villarreal's . I did see him in the hallway and he had his son in law or daughter's boyfriend and another relative. I did tell him about the bone scan report and that the bone scan does not show any problems in the lumbar spine where she is complaining of pain. The increased uptake is in the knee on both sides. No evidence of osseous metastases. I tried to explain to him that if the area in the lung is cancer, that the cancer has not traveled to the bone. He was bewildered on why it would travel to other places. I told him that is how cancer does and that it travels and implants some place else. I gave him an example of the cancer of the prostate would most likely travel or metastasize to the bone and the cancer of the colon would most likely go to the liver and then the lung. A cancer of the lung can go also to the bone and to the brain. He was telling me about the pain that the patient is now experiencing since the patient did not have the dose at that time, since she was asleep. The niece was there and according to him told the nurse not to wake her up. It would have been due at 6 o'clock and the patient began to complain about 8 p.m. The medication was not due until 9. The nurse did not give the medication. I would try to explain to the nurse that the schedule should be a moving schedule. If she had not had any medication for five hours that when she complains of pain that it should be given and based upon that will be scheduled again at every three [address]. [address] Fay to see the patient to help evaluate and treat her problems. DESTINI
--- NOTE | 2017-05-02 12:05 | PN ---
DATE: 04/11/[address] Cuco Hawley of [place]. Dr. Hawley did see Mrs. Zhanna Villarreal 08/04/2016. From his notes it mentioned that he will schedule her for a CT guided needle biopsy as per IR at [facility]. I did call his office and left a message and Dr. Hawley did return the call somewhere close to 5 p.m. on 04/11/2017. He told me that he tried to schedule the procedure and Mrs. Zhanna Villarreal's , Calvin, did not want it done at [place] because of the distance and the pain that his is experiencing. Dr. Hawley told me that he would try to get it scheduled at [place], since it is closer. I did ask Zhanna Mayer's , with regards to the visit and he told me that the doctor told them that it was small and nothing else was mentioned to me. It sounded like the doctor was dismissive about the problem during the course of my conversation with him. MTDD
--- NOTE | 2017-05-13 13:11 | DS ---
PATIENT IDENTIFICATION: 71 year old female was admitted to the hospital by the emergency room because of exacerbation of chronic back pain. The patient had been suffering from lumbar pain for years. She had been to Pain Management and was receiving injections at regular intervals. The injection however was suspended since she is not able to tolerate a prone positive and she was then just given Narcotic and Algesic medications for the control of pain. I was asked by her and her ex- whether I could prescribe the pain medications since that is the only reason that they go to [place] and it will reduce their travel time and distance. I told them that I would and so the patient has been receiving pain medication from my place of practice. She has three previous back surgeries prior to the pain management. HOSPITAL COURSE: She did experience pain two days prior to presentation to the emergency room that was more severe then previous and was not uncontrollable with the use of medication. The patient was given Hydrocodone/APAP 10-325 to be taken every 6 hours. The patient however is taking half a dose every three hours around the clock. Also using Aspercreme Lidocaine applied three times a day to the back. The patient was then subsequently admitted to the hospital for control of pain. The patient at the emergency room did undergo the following; CT scan of abdomen and pelvis and interpreted as relatively severe generalized demineralization of the lower spine as well as severe degenerative changes. No definite acute fracture. Nodular opacity in the right lung base may represent pneumonia, pulmonary nodules are not excluded and clinical correlation and followup CT Thorax recommended. Appearance of the liver described and slightly heterogeneous prominent caudate lobe and widening of the fissures. Correlate any history with liver cirrhosis. Moderate atherosclerotic disease. CT scan of the lumbar spine showed the following readings, no fracture of subluxation, postsurgical changes of L4-L5 and L5-S1. Chronic discogenic degenerative disease and facet arthrosis. CT chest showed large lung mass in the right infrahilar space consistent with neoplasm. There is narrowing of the original bronchial vascular structures. Nodular infiltrates (pneumonia) or nodules in the right lung base. Background of moderately severe chronic obstructive pulmonary disease and scattered fibrosis. The patient's general appearance is that of a pale patient and agony, responsive and cooperative. Severe anemia with MVH and MCH. Reason for the anemia is not clear but maybe secondary to B complex deficiency but why is it because of aging and some problems with absorption. He is receiving Vitamin D 50,000 international units monthly. A bone scan was scheduled to see if there is any abnormalities not visualized with the CT scan and did explain this to the ex-. The patient on had an episode of hypercarbia and marked lethargy. She was still responsive but difficult to arouse. I had explained to the ex- about the difficulty giving Narcotic medication that produces depressed respiration and controlling the pain. The pain is more intense when she moves which probably can not be controlled by the medication. The patient's medications were then reduced and the patient sodium had improved. I had discussed the resuscitation with the ex- who is taking care of her. He is the full provider for her. He did agree with me in that discussion that it probably a fatality to do resuscitation and intubation. However I did know later that she was a full code and I did ask if she wishes to do that and they told me it was the patient and so I asked to talk to the patient with the and the rest of the members of the family. The daughter was outside and the daughter wanted her mother to be in full resuscitative mode. A CAT scan of the head also was done to make sure that when she was more lethargic that she did not have any cerebral vascular accident to account for that and the CT scan done 04/09/17 revealed no acute intracranial hemorrhage or evidence of a new large vessel infarct. Chronic ill-defined areas of decreased attenuation in the right frontal parietal region consistent with old infarct. Chest CT was repeated and was no pneumothorax in the findings essentially the same right infrahilar mass, right lung infiltrates and minimal consolidation/ pneumonia, small right pleural effusion and chronic obstructive pulmonary disease. Her bone scan done on 04/11/17 showed no evidence of osseous metastasis, degenerative changes of knee joints bilaterally. The findings were communicated with ex- as well as the patient that there is no signs of any metastasis if the lung problem is a malignancy. This patient also had breast carcinoma that was malignant removed years ago. Cardiology consultation was requested and the patient was seen by Dr. Fay on 04/10/17 and he planned to do an echocardiogram to evaluate the left ventricular function and prescribed Cardizem 60mg twice a day for the hypertension and tachycardia.Her medication had been rearranged and the Dilaudid which was given 1mg PRN is now down to 0.25mg to be given every 6 hours for intense pain. Mckinnon was increased to 7.5-325 every three hours and again to watch her respiration. Hydromorphone was given as needed. She was continued on her Rocephin Intervenously as well as Lovenox 30mg SUBQ daily. She also had Azithromycin. Those medications were given for the pneumonic process. I did inform the family that I would seek transfer to another facility if she would need intubation, she will still be transferred. Also the other facilities might be able to make further referrals to a plant buyer to define the Tumor mass in the right lung bautista. She also might be able to access Pain Management while there. I had discussed the case first with [facility] with a doctor that was the Hospitalist and he did not accept the patient to his services. I did talk to the Hospitalist at [facility] did accept the patient to his services. I did inform the patient as well as the relatives and the daughter was happy that she was going to be transferred to another facility and she did thank me. She was then transferred to [facility] 04/11/17. The patient was alert and responsive with movement of all extremities. Vital signs at 6:05pm; Pulse rate 92, blood pressure 137/82, respiratory rate 18, saturation 92 with 2 liters. FINAL DIAGNOSES: 1. Chronic back pain on chronic Narcotic and Algesics with acute exacerbation, persistent and severe 2. Chronic obstructive pulmonary disease, severe with respiratory failure and oxygen supplementation 3. Moderate to severe anemia 4. Right Infrahilar mass, nature undetermined 5. Right lower lobe pneumonia 6. History of breast carcinoma 7. History of lumbar surgery x3 while in [place] PROGNOSIS: Poor MTDD
== END 2017-04-11 20:10 | disposition short-term general hospital (02) | DRG 551 ==
LOC: ED 07:21 → MEDSURG B 11:35
PROVIDERS: ADMIT General Practice; ATTEND General Practice
DX: M54.5 Low back pain (principal); J96.90 Respiratory failure, unspecified, unspecified whether with hypoxia or hypercapnia; J18.9 Pneumonia, unspecified organism; J44.1 Chronic obstructive pulmonary disease with (acute) exacerbation; R91.8 Other nonspecific abnormal finding of lung field; Z99.81 Dependence on supplemental oxygen; D64.9 Anemia, unspecified; Z85.3 Personal history of malignant neoplasm of breast; Z98.890 Other specified postprocedural states
CPT/HCPCS: 36415; 80053; 81001; 82550; 82803; 83605; 83880; 84145; 84439; 84443; 84484; 85025; 85651; 86140; 87040; 87070; 87086; 87186; 93005; 93010; 94150; 94640; 96365; 96367; 96375; 99223; 99284

== ENCOUNTER 2017-04-11 20:16 | Outpatient (CLI) | END 2017-04-11 20:17 | disposition short-term general hospital (02) | LOC: AMBL 20:16 | PROVIDERS: ATTEND Emergency Medicine | DX: J18.9 Pneumonia, unspecified organism (principal); R91.8 Other nonspecific abnormal finding of lung field; M54.5 Low back pain; G89.29 Other chronic pain ==

== ENCOUNTER 2017-05-02 13:18 | Outpatient (CLI) | END 2017-05-02 13:19 | disposition short-term general hospital (02) | LOC: AMBL 13:18 | PROVIDERS: ATTEND Internal Medicine | DX: R41.82 Altered mental status, unspecified (principal); R00.0 Tachycardia, unspecified; R53.83 Other fatigue ==

== ENCOUNTER 2017-05-05 18:10 | Outpatient (CLI) | END 2017-05-05 18:11 | disposition hospice, home (50) | LOC: AMBL 18:10 | PROVIDERS: ATTEND Emergency Medicine | DX: R06.9 Unspecified abnormalities of breathing (principal); R41.82 Altered mental status, unspecified; C80.1 Malignant (primary) neoplasm, unspecified; R91.8 Other nonspecific abnormal finding of lung field; Z99.81 Dependence on supplemental oxygen ==